=== PATIENT | male | born 1970 | race Two or more races ===

== ENCOUNTER 2019-06-02 12:12 | Emergency (ER) | payer OTHER ==
[~2019-06-02] VITALS: Ht 167.6 cm; Wt 77.1 kg
[2019-06-02 12:22] VITALS: BP 141/86
[2019-06-02] MEDS ORDERED: IBUPROFEN 800 MG TAB PO ONE (14:00)
== END 2019-06-02 14:23 | disposition home or self-care (01) ==
LOC: ER 12:16
DX: S82.831A Other fracture of upper and lower end of right fibula, initial encounter for closed fracture (principal); E11.9 Type 2 diabetes mellitus without complications; E78.5 Hyperlipidemia, unspecified; I10 Essential (primary) hypertension; F17.210 Nicotine dependence, cigarettes, uncomplicated; Z86.73 Personal history of transient ischemic attack (TIA), and cerebral infarction without residual deficits; W01.198A Fall on same level from slipping, tripping and stumbling with subsequent striking against other object, initial encounter; Y93.89 Activity, other specified; Y99.8 Other external cause status; Y92.098 Other place in other non-institutional residence as the place of occurrence of the external cause
CPT/HCPCS: 29515; 73610

== ENCOUNTER 2021-09-30 12:36 | Emergency (ER) | payer MEDICAID, OTHER ==
[~2021-09-30] VITALS: Ht 167.6 cm; Wt 72.6 kg
[2021-09-30 12:39] VITALS: BP 165/110
[2021-09-30] MEDS ORDERED: cloNIDine HCL 0.1 MG TAB PO ONE (13:00)
== END 2021-09-30 21:44 | disposition left against medical advice (07) ==
LOC: ER 12:36
DX: J02.9 Acute pharyngitis, unspecified (principal); Z53.21 Procedure and treatment not carried out due to patient leaving prior to being seen by health care provider; Z20.822 Contact with and (suspected) exposure to COVID-19
CPT/HCPCS: 36415; 87426